=== PATIENT | male | born 1995 | race Asian ===

== ENCOUNTER 2018-06-24 09:24 | Day surgery (SDC) | payer OTHER ==
[2018-06-24] MEDS ORDERED: LACTATED RINGERS 1,000 ML IV ONE (09:56)
--- NOTE | 2018-06-24 10:00 | ANESTHESIA ---
Pre-Anesthesia VS, & Labs - Diagnosis left knee cartilage lesion - Procedure left knee arthroscopy, chondroplasty Vital Signs: Temp Pulse Resp BP Pulse Ox 36.2 C L 58 L 16 127/75 100 06/24/18 09:30 06/24/18 09:30 06/24/18 09:30 06/24/18 09:30 06/24/18 09:30 Height 5 ft 10 in Weight (kg) 77.11 kg - NPO >8 hours Home Medications and Allergies Home Medications: Ambulatory Orders No Known Home Medications 06/16/18 No Known Home Medications 06/16/18 Allergies/Adverse Reactions: Allergies Allergy/AdvReac Type Severity Reaction Status Date / Time No Known Drug Allergies Allergy Verified 06/16/18 14:20 Anes History & Medical History - Anesthetic History Anesthesia Complications: reports: No previous complications Family history of Anesthesia Complications: Denies Family history of Malignant Hyperthermia: Denies - Medical History Cardiovascular: reports: None Pulmonary: reports: None Gastrointestinal: reports: None Urinary: reports: None Musculoskeletal: reports: Other Endocrine/Autoimmune: reports: None Skin: reports: None - Surgical History Orthopedic: Other Exam General: Alert, Oriented x3, Cooperative, No acute distress Dental: WNL Mouth Openin Fingerbreadth Neck Mobility: Normal Mallampati classification: II Thyromental Distance: greater than 6 cm Respiratory: Lungs clear, Normal breath sounds, No respiratory distress, No accessory muscle use Cardiovascular: Regular rate, Normal S1, Normal S2, No murmurs Mental/Cognitive Status: Alert/Oriented X3, Normal for patient Plan Anesthesia Type: General Consent for Procedure(s) Verified and Reviewed: No Code Status: Attempt Resuscitation ASA classification: 1-Healthy patient Is this case an emergency?: No
[2018-06-24] MEDS ORDERED: EPINEPHrine 1 MG/ML AMP ONE (10:10)
[2018-06-24] MEDS ORDERED: BUPIVACAINE 0.25% PF 10 ML VIAL ONE (10:21)
[2018-06-24] MEDS ORDERED: ceFAZolin 2 GM/50 ML 2 GM/50 ML BAG IV ONE (10:29)
[2018-06-24] MEDS ORDERED: ACETAMINOPHEN 1,000 MG/100 ML 100 ML IV ONE (10:30)
[2018-06-24] MEDS ORDERED: ONDANSETRON 4 MG/2 ML VIAL IVP ONE (10:30)
[2018-06-24] MEDS ORDERED: MIDAZOLAM 2 MG/2 ML VIAL IVP ONE (10:30)
[2018-06-24] MEDS ORDERED: LIDOCAINE-MPF 2% 5 ML VIAL IM ONE (10:30)
[2018-06-24] MEDS ORDERED: PROPOFOL 200 MG/20 ML VIAL IVP ONE (10:30)
[2018-06-24] MEDS ORDERED: DEXAMETHASONE 4 MG/ML VIAL IVP ONE (10:30)
[2018-06-24] MEDS ORDERED: fentaNYL 100 MCG/2 ML VIAL IVP ONE (10:30)
[2018-06-24] MEDS ORDERED: BUPIVACAINE 0.25% PF 30 ML VIAL SUBQ ONE ×4 (11:10→12:54)
[2018-06-24] MEDS ORDERED: ONDANSETRON 4 MG/2 ML VIAL IVP PRN (11:51)
[2018-06-24] MEDS ORDERED: oxyCODONE 5 MG TABLET PO PRN (11:51)
--- NOTE | 2018-06-24 11:58 | OPERATIVE REPORT ---
Operative Report - Other Other Information/Narrative: Date of Surgery: 24 June 2018 Pre-Op Diagnosis: Left knee pain with patella cartilage lesion Procedure: Left knee arthroscopy with patellar chondroplasty, intra-articular debridement of medial plica. [id number], [id number] Postop Diagnosis: Left knee full-thickness patellar cartilage lesion 7 mm x 7 mm Primary Surgeon: Scot Reynoso Secondary Surgeon: Cruzito YATES Complications: None Tourniquet Time: 30 minutes EBL: 5 cc Indication For Surgery: 29-year-old male who has had 4 years of anterior knee pain not associated with a specific injury. He has failed nonoperative treatment with extensive physical therapy. The MRI showed subchondral edema in the patella and the trochlea.. The risks, benefits, and alternatives were discussed. Risks include pain, bleeding, infection, damage to nearby structures and cartilage, lack of symptom relief, need for further surgery, DVT, PE, stroke, and . Written consent was obtained. Examination Under Anesthesia: ROM equal to the contralateral side. Stable dial at 30 & 90 degrees. Stable to varus and valgus stressing at 0 & 30 degrees. 1a Anderson. Normal Pivot shift. No mechanical sensation Arthroscopic Findings: No loose bodies. Synovium was exuberant and a medial plica was seen which was taken down, a large ligamentum mucosum was seen as well and it was taken down. Patella cartilage showed a full-thickness lesion centrally within the patella. It measured 7 mm x 7 mm the pin debrided down to bone. Trochlear cartilage softening with partial thickness fissuring. Medial femoral condyle cartilage was normal. Medial tibial plateau cartilage was normal. Medial meniscus was normal. ACL was normal. PCL was normal. Lateral femoral condyle cartilage was normal. Lateral tibial plateau cartilage was normal. Lateral meniscus was normal. Procedure in Detail: The patient was met in the pre-operative hold area on the day of the procedure. The operative extremity was signed and questions were answered. The patient was brought to the operating room and a general anesthetic was administered. Supine position was used and bony prominences were padded. An examination under anesthesia was performed. Standard prepping and draping was performed. A time out confirmed patient identification, laterality, procedure, allergies, antibiotics, and images. An Esmarch was used to exsanguinate the limb and the tourniquet was elevated to 250 mmHg. A standard diagnostic arthroscopy of the knee was performed through anterolateral and anteromedial portal sites. The anteromedial portal was created under direct visualization after localizing with a spinal needle. The findings can be found above. I then proceeded to use the shaver to debride away a large ligamentum mucosum and any abnormal fat pad. I then extended this a debridement medially to take down the medial plica completely. I then used a shaver to debride the superficial portion of the patellar cartilage lesion and found that it tracked full-thickness. I debrided the best I could from the medial and lateral portal sites. To obtain a better angle of approach I created a lateral superior portal with a spinal needle and used a shaver and ring curettes to remove all unstable portions of cartilage. I then probed it e xtensively and measured to be 7 mm x 7 mm. It had stable urbano. Final images were taken and all arthroscopic fluid and instruments were removed from the knee. The incisions were closed with nylon 20 cc of 0.25% Marcaine without epinephrine was injected near the portal sites. A sterile dressing and compression stocking was placed. The patient was awakened and transferred to recovery in stable condition.
[2018-06-24] MEDS ORDERED: oxyCODONE 5 MG TABLET ONE (12:58)
[2018-06-24 13:45] VITALS: BP 120/75
== END 2018-06-24 09:25 | disposition home or self-care (01) ==
LOC: SDS 09:24
PROVIDERS: ATTEND Orthopaedic Surgery
PROC: 0SBD4ZZ Excision of Left Knee Joint, Percutaneous Endoscopic Approach (ICD-10-PCS; principal; 2018-06-24 11:00)
DX: M25.862 Other specified joint disorders, left knee (principal); M67.52 Plica syndrome, left knee; M25.562 Pain in left knee
CPT/HCPCS: 29877; A9270; J0131; J0690; J7120

== ENCOUNTER 2018-07-19 07:40 | Outpatient (CLI) | payer OTHER ==
[2018-07-19] MEDS ORDERED: GADOBUTROL 7.5 MMOL/7.5 ML VIAL ONE (07:51)
[2018-07-19] MEDS ORDERED: GADOBUTROL 7.5 MMOL/7.5 ML VIAL IVP ONE (08:51)
--- NOTE | 2018-07-19 17:59 | MRI Report ---
Reason: [facility] NRV AUTONM NRV SYS, UPR LMB, Procedure Date: 07/19/2018 Accession Number: [id number] / [id number] Procedure: MRI - Forearm RT W/WO CPT Code: FULL RESULT: EXAM: RIGHT FOREARM MRI WITHOUT AND WITH CONTRAST EXAM DATE: 07/19/2018 07:47 AM. CLINICAL HISTORY: Benign neoplasm of peripheral nerve; autonomic nervous system, upper limb. COMPARISON: ELBOW RIGHT ELBOW 06/15/2018 10:59 AM. TECHNIQUE: Multiplanar, multisequence T1-weighted and fluid-sensitive sequences of the forearm before and after administration of intravenous contrast. IV contrast: 7.5 mL Gadavist given IV, no reaction. Other: None. FINDINGS: Bones: No fractures or subluxations. No marrow edema or abnormal enhancement. No bone lesions. Joint Spaces: Visualized portions of the wrist and elbow joints are unremarkable. Ligaments: The interosseous membrane is intact. Tendons: Where visualized, the proximal wrist tendons are intact Musculature: No edema or fatty atrophy. Normal muscular anatomy. Other: There is a focal area of concern in the ulnar neurovascular bundle which corresponds to the area of abnormality seen on the 06/15/2018 comparison which is closely associated with ulnar vessels. With contrast, there is low level enhancement and mixing of opacified and nonopacified blood. Series 1201 image 6, series 1301 image 4 for example. Diameter of this vascular space is 1.4 x 1.1 cm transversely and this extends over a distance of about 8.2 cm at the proximal forearm. IMPRESSION: 1. Focal area of concern in the forearm is closely associated with the ulnar neurovascular bundle and has imaging features of a venous varix or a venous malformation. Differential diagnosis also includes a multifocal or plexiform neurofibroma, considered less likely given the enhancement pattern. No adjacent muscular edema or atrophy. No evidence for arterial supply to this vascular space. 2. Venous duplex Doppler ultrasound of the forearm should help if not already performed. [facility]
== END 2018-07-19 07:41 | disposition home or self-care (01) ==
LOC: DI 07:40
PROVIDERS: ATTEND Orthopaedic Surgery
DX: D36.12 Benign neoplasm of peripheral nerves and autonomic nervous system, upper limb, including shoulder (principal)
CPT/HCPCS: 73220; A9585